=== PATIENT | female | born 1965 | race Two or more races ===

== ENCOUNTER 2023-11-02 20:36 | Emergency (ER) | payer BC, OTHER ==
[~2023-11-02] VITALS: Ht 162.6 cm; Wt 76.7 kg
[2023-11-02 21:20] LABS: Urine Bacteria None Seen /hpf (None Seen)
[2023-11-02 21:24] VITALS: BP 118/76; PULSE 104; RESP 16; TEMP 98.1; O2SAT 94
[2023-11-02] MEDS: KETOROLAC TROMETH 30 MG/ML 1ML VIAL IV ONE (21:32)
[2023-11-02] MEDS: ONDANSETRON HCL 4 MG/2 ML VIAL IV ONE (21:32)
[2023-11-02] MEDS: SODIUM CHLORIDE 0.9% 1,000 ML IV ONE (21:32)
[2023-11-02 21:42] LABS: Alanine Aminotransferase 37 U/L (7-40); Albumin 4.6 g/dL (3.2-4.8); Alkaline Phosphatase 108 U/L (46-116); Anion Gap 10 (5-15); BUN/Creatinine Ratio 15.4 (10.0-20.0); Bilirubin, Total 0.2 mg/dL (0.2-1.0); Blood Urea Nitrogen 14 mg/dL (9-23); Calcium 9.4 mg/dL (8.7-10.4); Carbon Dioxide 27 mmol/L (20-30); Chloride 106 mmol/L (98-107); Glucose 110 mg/dL (74-106); Potassium 3.8 mmol/L (3.5-5.1); Sodium 143 mmol/L (136-145); Total Protein 6.9 g/dL (5.7-8.2)
[2023-11-02] MEDS: PANTOPRAZOLE 40 MG/10 ML VIAL INJ IV ONE (21:45)
[2023-11-02 21:48] LABS: Amphetamine Screen, Urine Neg (NEGATIVE); Barbiturate Scree,Urine Neg (NEGATIVE); Benzodiazephine Screen, Urine Neg (NEGATIVE); Cocaine Screen, Urine Neg (NEGATIVE); Opiate Scree,Urine Neg (NEGATIVE)
[2023-11-02 21:49] LABS: Cannabinoid Screen, Urine Neg (NEGATIVE); Phencyclidine Screen, Urine Neg (NEGATIVE)
[2023-11-02 21:50] LABS: Blood Alcohol 312.1 mg/dL (<10)
[2023-11-02 21:54] LABS: Basophils # (auto) 0 10 ^3/uL (0-0.2); Basophils % (auto) 0.7 % (0.0-2.0); Eosinophils # (auto) 0 10 ^3/uL (0-0.8); Eosinophils % (auto) 0.3 % (0.0-7.0); Hematocrit 44.1 % (36.0-46.0); Hemoglobin 15.5 g/dL (12.2-16.2); Lymphocytes # (auto) 3.2 10 ^3/uL (0.4-5.4); Lymphocytes % (auto) 53.4 % (10.0-50.0); Mean Corpuscular Hgb Conc. 35.2 g/dL (32.0-36.0); Mean Corpuscular Volume 85.1 fL (80.0-100.0); Monocytes # (auto) 0.4 10 ^3/uL (0-1.3); Monocytes % (auto) 6.3 % (0.0-12.0); Neutrophils # (auto) 2.4 10 ^3/uL (1.6-8.6); Neutrophils % (auto) 39.3 % (37.0-80.0); Nucleated Red Blood Cells % 0.2 %; Red Blood Cells 5.18 10^6/uL (4.0-5.20); Red Cell Distribution Width 13.4 % (11.8-14.3)
[2023-11-02 21:55] LABS: Aspartate Aminotransferase 32 U/L (13-40)
[2023-11-02 22:07] LABS: Urine Blood Negative /uL (Negative); Urine Clarity Clear (Clear); Urine Color Light-Yellow (Yellow); Urine Protein, UAD TRACE (Negative); Urine Specific Gravity 1.012 (1.001-1.035); Urine Urobilinogen Normal (Negative); Urine WBC 1 /hpf (0 - 5)
[2023-11-02] MEDS: IOHEXOL 300 MG/ML 100ML BOTTLE IJ ONE (22:10)
== END 2023-11-03 00:56 | disposition left against medical advice (07) ==
LOC: ER 20:36
DX: F10.129 Alcohol abuse with intoxication, unspecified (principal); R10.31 Right lower quadrant pain; R11.2 Nausea with vomiting, unspecified; R19.7 Diarrhea, unspecified; Z98.890 Other specified postprocedural states; Z79.899 Other long term (current) drug therapy; Y90.0 Blood alcohol level of less than 20 mg/100 ml
CPT/HCPCS: 36415; 74177; 80053; 80307; 80320; 81001; 85025; 96361; 96374; 96375; 99285; J1885; J2405; J2470; J7030; Q9967

== ENCOUNTER 2024-03-26 20:07 | Emergency (ER) | payer BC ==
[~2024-03-26] VITALS: Ht 165.1 cm; Wt 72.7 kg
[2024-03-26 20:40] VITALS: BP 145/104; PULSE 132; RESP 18; O2SAT 95
[2024-03-26] MEDS: TETANUS-DIPTH-ACEL PERTUSSIS 0.5ML SYR Tdap IM ONE (21:00)
[2024-03-26] MEDS: SODIUM CHLORIDE 0.9% 1,000 ML IV ONE (21:00)
--- NOTE | 2024-03-26 21:00 | ED.PDOC ---
HPI Comments 58-year-old female presents to ER with complaints of laceration to scalp x 30 minutes. Patient states that she tripped over her dog in her bedroom and hit her left posterior scalp against a wooden dresser and sustained laceration to left posterior scalp at that time. Reports positive LOC and states she has been drinking alcohol tonight. Patient currently complains of 7/10 left sided headache without radiation. Denies use of medications for current symptoms. Arturo perez presents to ER alert and oriented x4, in no distress and states she is unsure when her last tetanus shot was. Denies n/v, numbness/tingling, dizziness, confusion, use of blood thinners, neck pain, sob, chest pain or any further symptoms/complaints Time Seen by MD: 20:29 Primary Care Provider: Donell Oneill Notes: Nurses Notes, Medications, Allergies Allergies: Coded Allergies: NO KNOWN ALLERGIES (Unverified , 11/02/23) Information Source: Patient Complexity: Intermediate Laceration Length (cm): 3 Skin Type: Irregular Past Medical History Past Medical History (Other): SCLERODERMA Surgical History: Hernia Repair AVIATION TECHNICIAN History: No Pertinent AVIATION TECHNICIAN History Family History Family History: Unknown Social History Smoker: Non-Smoker Alcohol: Heavy Drugs: Denies Drug Use Lives In: Home Constitutional: denies: chills, diaphoresis, fatigue, fever, malaise, sweats, weakness, others EENTM: denies: blurred vision, double vision, ear bleeding, ear discharge, ear drainage, ear pain, ear ringing, eye pain, eye redness, hearing loss, mouth pain, mouth swelling, nasal discharge, nose bleeding, nose congestion, nose pain, photophobia, tearing, throat pain, throat swelling, voice changes, others Respiratory: denies: cough, hemoptysis, orthopnea, SOB at rest, shortness of breath, SOB with excertion, stridor, wheezing, others Cardiovascular: denies: chest pain, dizzy spells, diaphoresis, Dyspnea on exertion, edema, irregular heart beat, left arm pain, lightheadedness, palpitations, PND, syncope, others Gastrointestinal: denies: abdomen distended, abdominal pain, blood streaked bowels, constipated, diarrhea, dysphagia, difficulty swallowing, hematemesis, melena, nausea, poor appetite, poor fluid intake, rectal bleeding, rectal pain, vomiting, others Genitourinary: denies: abnormal vagina bleeding, burning, dyspareunia, dysuria, flank pain, frequency, hematuria, incontinence, pain, , vagina discharge, urgency, others Neurological: reports: others (As stated in HPI) Musculoskeletal: denies: back pain, gout, joint pain, joint swelling, muscle pain, muscle stiffness, neck pain, others Integumetry: reports: others (As stated in HPI) Allergic/Immunocompromised: denies: Difficulty Healing, Frequent Infections, Hives, Itching, others Hematologic/Lymphatic: denies: anemia, blood clots, easy bleeding, easy bruising, swollen glands, others Endocrine: denies: excessive hunger, excessive sweating, excessive thirst, excessive urination, flushing, intolerance to cold, intolerance to heat, unexplained weight gain, unexplained weight loss, others Psychiatric: denies: anxiety, bipolar disorder, depression, hopeless, panic disorder, schizophrenia, sleepless, suicidal, others Physical Exam General Appearance: No Apparent Distress HEENT: Normal ENT Inspection, PERRL/EOMI (No raccoon eyes noted bilaterally), Pharynx Normal, TMs Normal (No hemotympanum noted bilaterally) Neck: Full Range of Motion, Non-Tender, Normal Respiratory: Chest Non-Tender, Lungs Clear, No Accessory Muscle Use, No Respiratory Distress, Normal Breath Sounds Cardiovascular: No Murmur, No Gallop, Regular Rate/Rhythm Breast Exam: Deferred Gastrointestinal: Non Tender, No Pulsatile Mass, Soft Genitalia: Deferred Pelvic: Deferred Rectal: Deferred Extremities: Normal capillary refill, Normal range of motion Neurologic: Alert (GCS 15), life cycle assessment analyst II-XII nml as Tested, No Motor Deficits, Normal Affect, Normal Mood, No Sensory Deficits Cerebellar Function: Normal Reflexes: Normal Skin: Dry, Warm, Other (3 cm laceration noted to left posterior scalp. Slight TTP/swelling/erythema localized to wound edges. No further skin changes noted) Peripheral Pulses: 2+ Radial (R), 2+ Radial (L), 2+ Brachial (R), 2+ Brachial (L) Lymphatic: No Adenopathy Was a procedure done? Was a procedure done?: No Sedation Sedation?: No Differential diagnosis Generic Laceration: Fracture, Retained Foriegn Body, Neurovascular Injury Differential Diagnosis: Other (Subdural hematoma, subarachnoid hemorrhage) X-Ray, Labs, Meds, VS Vital Signs Date Time Temp Pulse Resp B/P (MAP) Pulse Ox O2 Delivery O2 Flow Rate FiO2 03/26/24 20:40 98.9 132 18 145/104 (118) 95 PATIENT: LINDSAY LEONARDCCT: [id number]: [id number] : 1965 LOC: ER ROOM / BED: / AGE / SEX: 58 / F ADM STATUS: REG ER SERVICE 52 ORDERING PHYSICIAN: JOHN MONIQUE PROCEDURE(s): HWOCT - HEAD WITHOUT CONTRAST REASON: head injury ORDER NUMBER(s): [id number], ACCESSION NUMBER(s): [id number] EXAM: CT HEAD WITHOUT CONTRAST INDICATION: head injury TECHNIQUE: CT of the head without intravenous contrast. Radiation Dose Information: CT Dose: CTDI volume is 58.74 mGy. Dose-length product is 1274.92 mGy*cm The dose indicators for CT are the volume Computed Tomography (CT) Dose Index (CTDIvol) and the Dose Length Product (DLP), and are measured in units of mGy and mGy-cm, respectively. These indicators are not patient dose, but values generated from the CT scanner acquisition factors. The report includes radiation exposure data for exposures received during this examination. COMPARISON: None FINDINGS: There is no evidence of acute intracranial hemorrhage, extra-axial collection, mass effect, midline shift, herniation or hydrocephalus. The ventricles, sulci and cisterns are age appropriate. The mccollum-white differentiation is intact. Patchy periventricular and subcortical white matter hypoattenuation is nonspecific but may be related to small vessel ischemic disease. The visualized paranasal sinuses and mastoid air cells are clear. Soft tissue swelling in the left posterior skull. No underlying fracture or intracranial hemorrhage. IMPRESSION: 1. Soft tissue swelling in the left posterior skull. There is no underlying fracture or intracranial hemorrhage. 2. No subarachnoid or subdural hemorrhage. 3. No CT findings of displaced skull fracture. 4. ATED BY: MARY GRACE TINOCO Jr., DO DICTATED DATE/TIME: 03/26/242131 SIGNED BY: MARY GRACE TINOCO Jr., SIGNED DATE/TIME: 03/26/242131 CC: PATIENT: BAYLEE LEONARD ACCT: [id number] UNIT: [id number] : 1965 LOC: ER ROOM / BED: / AGE / SEX: 58 / F ADM STATUS: REG ER SERVICE 99 ORDERING PHYSICIAN: JOHN MONIQUE PROCEDURE(s): CS2 - CERVICAL WITHOUT CONTRAST REASON: neck pain ORDER NUMBER(s): [id number], ACCESSION NUMBER(s): [id number] EXAM: CT CERVICAL WITHOUT CONTRAST INDICATION: neck pain EXAM DATE: 03/26/2024 09:05 PM COMPARISON: None TECHNIQUE: Multiple axial CT images of the cervical spine were obtained using bone algorithm. Axial and coronal reformatting was done. Bone and soft tissue windows were reviewed. Radiation Dose Information: CT Dose: CTDI volume is 21.92 mGy. Dose-length product is 542.28 mGy*cm FINDINGS: The cervical alignment is intact. No acute cervical spine fracture is identified. The vertebral body heights are intact. No suspicious osseous lesions are identified. Bony spondylosis and degenerative disc changes from C3 through C7 with calcifications in the anterior longitudinal ligament from C3 through C7 and calcifications in the posterior longitudinal ligament There is no prevertebral soft tissue swelling. IMPRESSION: 1. No evidence of acute cervical spine fracture or traumatic malalignment. 2. No compressed vertebra 3. Bony spondylosis and degenerative disc changes from C3 through C7. All CT scans at this medical facility are performed using dose modulation techniques as appropriate to a performed exam including the following: Automated exposure control was utilized; adjustment of the MA and/or KV according to patient size; and use of iterative reconstruction technique. ATED BY: MARY GRACE TINOCO Jr., DO DICTATED DATE/TIME: 03/26/242138 SIGNED BY: MARY GRACE TINOCO Jr., SIGNED DATE/TIME: 03/26/242138 CC: CT head without contrast reviewed CT cervical without contrast reviewed Blood alcohol ordered Hep-Lock IV ordered NS 1 L IV ordered Patient was called back several times by nursing staff without any response Patient eloped from emergency department Nursing staff will attempt to contact patient back to return to ER as soon as possible Images Reviewed?: Images reviewed and evaluated by me Time of 1ST Reevaluation: 20:53 Reevaluation 1ST: N/A Patient Education/Counseling: Other (Patient eloped) Family Education/Counseling: No Family Present Departure 1 Departure Time of Disposition: 21:30 Impression: Primary Impression: Laceration of scalp Qualified Codes: S01.01XA - Laceration without foreign body of scalp, initial encounter Additional Impression: ETOH abuse Disposition: 07 LEFT AWOL/ELOPED Condition: Serious Critical Care Note Critical Care Time?: No Stability Stability form required: No Heart Score Heart Score: Heart Score Response (Comments) Value History N/A 0 EKG N/A 0 Age N/A 0 Risk Factors N/A 0 Troponin N/A 0 Total 0 JOHN MONIQUE Mar 26, 2024 21:00
--- NOTE | 2024-03-26 21:35 | DVH ---
EXAM: CT HEAD WITHOUT CONTRAST INDICATION: head injury TECHNIQUE: CT of the head without intravenous contrast. Radiation Dose Information: CT Dose: CTDI volume is 58.74 mGy. Dose-length product is 1274.92 mGy*cm The dose indicators for CT are the volume Computed Tomography (CT) Dose Index (CTDIvol) and the Dose Length Product (DLP), and are measured in units of mGy and mGy-cm, respectively. These indicators are not patient dose, but values generated from the CT scanner acquisition factors. The report includes radiation exposure data for exposures received during this examination. COMPARISON: None FINDINGS: There is no evidence of acute intracranial hemorrhage, extra-axial collection, mass effect, midline s hift, herniation or hydrocephalus. The ventricles, sulci and cisterns are age appropriate. The mccollum-white differentiation is intact. Patchy periventricular and subcortical white matter hypoattenuation is nonspecific but may be related to small vessel ischemic disease. The visualized paranasal sinuses and mastoid air cells are clear. Soft tissue swelling in the left posterior skull. No underlying fracture or intracranial hemorrhage. IMPRESSION: 1. Soft tissue swelling in the left posterior skull. There is no underlying fracture or intracranial hemorrhage. 2. No subarachnoid or subdural hemorrhage. 3. No CT findings of displaced skull fracture. 4.
--- NOTE | 2024-03-26 21:41 | DVH ---
EXAM: CT CERVICAL WITHOUT CONTRAST INDICATION: neck pain EXAM DATE: 03/26/2024 09:05 PM COMPARISON: None TECHNIQUE: Multiple axial CT images of the cervical spine were obtained using bone algorithm. Axial a nd coronal reformatting was done. Bone and soft tissue windows were reviewed. Radiation Dose Information: CT Dose: CTDI volume is 21.92 mGy. Dose-length product is 542.28 mGy*cm FINDINGS: The cervical alignment is intact. No acute cervical spine fracture is identified. The vertebral body heights are intact. No suspicious osseous lesions are identified. Bony spondylosis and degenerative disc changes from C3 through C7 with calcifications in the anterior longitudinal ligament from C3 through C7 and calcifications in the posterior longitudinal ligament There is no prevertebral soft tissue swelling. IMPRESSION: 1. No evidence of acute cervical spine fracture or traumatic malalignment. 2. No compressed vertebra 3. Bony spondylosis and degenerative disc changes from C3 through C7. All CT scans at this medical facility are performed using dose modulation techniques as appropriate t o a performed exam including the following: Automated exposure control was utilized; adjustment of th e MA and/or KV according to patient size; and use of iterative reconstruction technique.
== END 2024-03-26 21:40 | disposition left against medical advice (07) ==
LOC: ER 20:07
DX: S01.01XA Laceration without foreign body of scalp, initial encounter (principal); R51.9 Headache, unspecified; F10.10 Alcohol abuse, uncomplicated; Z98.890 Other specified postprocedural states; W01.0XXA Fall on same level from slipping, tripping and stumbling without subsequent striking against object, initial encounter; Y93.89 Activity, other specified; Y92.89 Other specified places as the place of occurrence of the external cause; Y99.8 Other external cause status
CPT/HCPCS: 70450; 72125